=== PATIENT | male | born 1965 | race Asian ===

== ENCOUNTER 2022-05-04 11:07 | Emergency (ER) | payer SELFPAY ==
[~2022-05-04] VITALS: Ht 167.6 cm; Wt 99.8 kg
[2022-05-04 11:22] VITALS: BP 166/96
--- NOTE | 2022-05-04 11:38 | NUR ---
57 Y/O D BIB SELF C/O RIGHT UPPER ARM ABRASION WOUND S/P DOG BITE X YESTERDAY. PT DID GOT HIS LAST [place] SHOT THIS PAST DECEMBER 2021 FOR A CUT. PMH: DM, HTN, HLD
--- NOTE | 2022-05-04 11:45 | NUR ---
ANIMAL BITE REPORT HAS BEEN FAXED [phone].
--- NOTE | 2022-05-04 12:19 | NUR ---
JUAN DAVID MORGAN AT BEDSIDE.
[2022-05-04] MEDS ORDERED: AMOX-999 PO (12:22)
--- NOTE | 2022-05-04 12:31 | NUR ---
Patient discharged with v/s stable. Written and verbal after care instructions given and explained. Patient alert, oriented and verbalized understanding of instructions. Ambulatory with steady gait. All questions addressed prior to discharge. ID band removed. Patient advised to follow up with PMD. Rx of AMOXICILLIN/POTASSIUM CLAV given. Opportunity to ask questions provided and answered.
--- NOTE | 2022-05-04 12:32 | NUR ---
The patient's care was reviewed and supervised by ED Agency Nurse 9, RN, RN.
== END 2022-05-04 12:31 | disposition home or self-care (01) ==
LOC: MED 11:07
DX: S41.151A Open bite of right upper arm, initial encounter (principal); E11.9 Type 2 diabetes mellitus without complications; I10 Essential (primary) hypertension; Z79.4 Long term (current) use of insulin; Z79.899 Other long term (current) drug therapy; Z88.8 Allergy status to other drugs, medicaments and biological substances; Z90.49 Acquired absence of other specified parts of digestive tract; W54.0XXA Bitten by dog, initial encounter; Y93.89 Activity, other specified; Y92.89 Other specified places as the place of occurrence of the external cause; Y99.8 Other external cause status
CPT/HCPCS: 99283